=== PATIENT | male | born 1980 | race African-American/Black ===

== ENCOUNTER 2020-04-06 03:37 | Emergency (ER) | payer SELFPAY ==
[~2020-04-06] VITALS: Ht 203.2 cm; Wt 90.7 kg
[2020-04-06] MEDS ORDERED: SODIUM CHLORIDE FLUSH 10 ML SYR INJ PRN (03:45)
--- OUTSIDE RECORDS SUMMARY | 2020-04-06 04:25 | XMS REPORT | Continuity of Care Document ---
Author Author [facility] Organization [facility] Address [address] [place] [address] Dr. Aggar[address] [place] [address] Phone Unavailable Care Team Providers Care Sawyer Helper Name Role Phone Kristina [facility] Attphys Doctor Unassigned, Name No Attphys Unavailable Problems This patient has no known problems. Allergies, Adverse Reactions, Alerts This patient has no known allergies or adverse reactions. Medications This patient has no known medications. Procedures This patient has no known procedures. Encounters Start Date/Time End Date/Time Encounter Type Admission Type [facility] Care Department Encounter ID Source 2019-09-10 16:15:30 2019-09-10 16:30:30 Urgent Care Otto wilson [facility] [id number] 2019-09-10 00:00:00 2019-09-10 00:00:00 Orders Only D octor Unassigned, [place] [facility] [id number] Results This patient has no known results.
--- NOTE | 2020-04-06 04:31 | Diagnostic Imaging Report ---
EXAMINATION: CXR 2 VIEW - HOPD INDICATION: ^[id number] ^0410 COMPARISON: None FINDINGS: PA and lateral views TUBES and LINES: None. LUNGS: Lungs are well inflated. There is no evidence of pneumonia or pulmonary edema. PLEURA: No pleural effusion or pneumothorax. HEART AND MEDIASTINUM: The cardiomediastinal silhouette is unremarkable. BONES AND SOFT TISSUES: No acute osseous lesion. Soft tissues are unremarkable. UPPER ABDOMEN: No free air under the diaphragm. IMPRESSION: No acute thoracic abnormality. Signed by: Dr. Alexander Deleon MD on 04/06/2020 4:28 AM
[2020-04-06] MEDS ORDERED: KLOR-CON M2020 MEQ PO (04:35)
[2020-04-06] MEDS ORDERED: METFORMIN HCL500 MG PO (04:35)
[2020-04-06] MEDS ORDERED: BACTRIM DS TAB1 EACH PO (04:35)
[2020-04-06] MEDS ORDERED: MOTRIN800 MG PO (04:35)
--- NOTE | 2020-04-06 04:37 | Emergency Department Note ---
History of Present Illnes History of Present Illness Chief Complaint: left Chest Pain History of Present Illness This is a 39 year old male. was doing well until 8 months ago then rgt neck painful lymphnode pain, bodyaches, back/left shoulder pain, intermittent abdominal pain, then pcp had an ekg, labb work and cxr were all negative. 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 Onset (how long ago): day(s) (4) Location: cp Quality: sharp Radiation: Reports non-radiation Severity: moderate Onset quality: gradual Duration (how long): day(s) (4) Timing of current episode: intermittent Progression: waxing and waning Chronicity: recurrent Context: Denies recent illness, Denies recent surgery, Denies recent immobilization, Denies recent travel, Denies trauma/injury, Denies new medications, Denies hx of DVT/PE, Denies non-compliance w/ medications Relieving factors: none Exacerbating factors: movement Associated symptoms: Reports denies other symptoms Treatments prior to arrival: none Past Medical/Family History Physician Review I have reviewed the patient's past medical and family history. Any updates have been documented here. Past Medical History Recent Fever: No Clinical Suspicion of Infectio: No New/Unexplained Change in Ment: No Past Medical History: None Past Surgical History: None Social History Smoking Cessation: Current some day smoker Counseling Performed: No Alcohol Use: Social Any Illegal Drug Use: Yes (CANNIBIS) TB Exposure/Symptoms: No Physically hurt or threatened: No Family History Family history of heart diseas: No Other Any Pre-Existing Lines (PICC,: No Is patient up to date on immun: No Review of Systems Review of Systems Constitutional: Reports no symptoms EENTM: Reports no symptoms Cardiovascular: Reports as per HPI Respiratory: Reports no symptoms Gastrointestinal: Reports no symptoms Genitourinary: Reports no symptoms Musculoskeletal: Reports as per HPI Integumentary: Reports no symptoms Neurological: Reports no symptoms Psychological: Reports no symptoms Endocrine: Reports no symptoms Hematological/Lymphatic: Reports no symptoms Review of other systems: All other systems negative Physical Exam Related Data Allergies: Coded Allergies: No Known Allergies (Unverified , 04/06/20) Triage Vital Signs Vital Signs Date Time Temp Pulse Resp B/P (MAP) Pulse Ox O2 Delivery O2 Flow Rate FiO2 04/06/20 03:40 98.4 77 18 113/77 99 Room Air Vital signs reviewed: Yes Physical Exam CONSTITUTIONAL Constitutional: Present well-developed, Present well-nourished HENT HENT: Present normocephalic, Present atraumatic, Present oropharynx clear/moist, Present nose normal HENT L/R: Present left ext ear normal, Present right ext ear normal EYES Eyes: Reports PERRL, Reports conjunctivae normal NECK Neck: Present ROM normal, Present supple, Present cervical adenopathy (rgt anterior) PULMONARY Pulmonary: Present effort normal, Present breath sounds normal CARDIOVASCULAR Cardiovascular: Present regular rhythm, Present heart sounds normal, Present capillary refill normal, Present normal rate GASTROINTESTINAL Abdominal: Present soft, Present nontender, Present bowel sounds normal GENITOURINARY Genitourinary: Present exam deferred SKIN Skin: Present warm, Present dry MUSCULOSKELETAL Musculoskeletal: Present ROM normal NEUROLOGICAL Neurological: Present alert, Present oriented x 3, Present no gross motor or sensory deficits PSYCHOLOGICAL Psychological: Present mood/affect normal, Present judgement normal Results Laboratory Lab results reviewed: Yes Laboratory comments cbc normal, bmp normal, lft normal, cardiac enzymes normal, bnp normal Imaging Imaging results reviewed: Yes Impressions [place] [address] Patient Name: JUSTO KUMAR MR #: [id number] : 1980 Age/Sex: 39/M Req #: [id number] Adm Physician: Ordered by: THERESA BEAR Report #: [id number] Location: [facility] Room/Bed: Procedure: [id number] HOPD/CXR 2 VIEW - HOPD Exam Date: 04/06/20 Exam Time: 0410 REPORT STATUS: Signed EXAMINATION: CXR 2 VIEW - HOPD INDICATION: ^[id number] ^0410 COMPARISON: None FINDINGS: PA and lateral views TUBES and LINES: None. LUNGS: Lungs are well inflated. There is no evidence of pneumonia or pulmonary edema. PLEURA: No pleural effusion or pneumothorax. HEART AND MEDIASTINUM: The cardiomediastinal silhouette is unremarkable. BONES AND SOFT TISSUES: No acute osseous lesion. Soft tissues are unremarkable. UPPER ABDOMEN: No free air under the diaphragm. IMPRESSION: No acute thoracic abnormality. Signed by: Dr. Alexander Deleon MD on 04/06/2020 4:28 AM Dictated By: ALEXANDER DELEON MD 7 Transcribed By: ASHLEY on 04/06/20427 COPY TO: THERESA BEAR~ Procedures 12 Lead ECG Interpretation ECG Interpretation : ECG: ECG 1 Date: Apr 06, 2020 Time: 05:10 Rhythm: sinus bradycardia Rate: bradycardia BPM: 51 QRS axis: normal Conduction: incomplete RBBB ST segments normal: Yes T waves normal: Yes Clinical Impression: abnormal ECG Assessment & Plan Medical Decision Making MDM see above Assessment & Plan Final Impression: (1) Atypical chest pain (2) Polyarthralgia (3) Polymyalgia (4) Cervical lymphadenitis Depart Disposition: HOME, SELF-CARE Last Vital Signs Date Time Temp Pulse Resp B/P (MAP) Pulse Ox O2 Delivery O2 Flow Rate FiO2 04/06/20 03:40 98.4 77 18 113/77 99 Room Air Home Meds Active Scripts Doxycycline Hyclate (DOXYCYCLINE HYCLATE) 100 Mg Capsule, 100 MG PO Q12H, #20 CAP Prov:THERESA BEAR 04/06/20 Amoxicillin/Potassium Clav (AUGMENTIN 875-125 TABLET) 1 Each Tablet, 875 MG PO Q12H, #20 TAB Prov:THERESA BEAR 04/06/20 Prednisone (PREDNISONE) 20 Mg Tab, 80 MG PO DAILY, #20 TAB take 4 20 mg pills all at once Prov:THERESA BEAR 04/06/20 Medications in the ED Sodium Chloride 10 ml PRN PRN INJ IV SITE FLUSH; Start 04/06/20 at 03:45; Stop 05/06/20 at 03:44 THERESA BEAR Apr 06, 2020 04:37
[2020-04-06] MEDS ORDERED: DOXYCYCLINE HY100 MG PO (05:10)
[2020-04-06] MEDS ORDERED: PREDNISONE20 MG PO (05:10)
[2020-04-06] MEDS ORDERED: AUGMENTIN 875-1 EACH PO (05:10)
== END 2020-04-06 05:55 | disposition home or self-care (01) ==
LOC: FSED 04:15
DX: R07.89 Other chest pain (principal); I88.9 Nonspecific lymphadenitis, unspecified; M35.3 Polymyalgia rheumatica; R94.31 Abnormal electrocardiogram [ECG] [EKG]; F17.210 Nicotine dependence, cigarettes, uncomplicated
CPT/HCPCS: 71046; 80053; 80076; 82553; 83880; 84484; 85025; 93005; 99283

== ENCOUNTER 2020-04-26 15:03 | Emergency (ER) | payer SELFPAY ==
[~2020-04-26] VITALS: Ht 203.2 cm; Wt 90.7 kg
[~2020-04-26 15:03] MED LIST: AUGMENTIN 875-1 EACH PO; BACTRIM DS TAB1 EACH PO; DOXYCYCLINE HY100 MG PO; KLOR-CON M2020 MEQ PO; METFORMIN HCL500 MG PO; MOTRIN800 MG PO; PREDNISONE20 MG PO
--- NOTE | 2020-04-26 16:26 | Diagnostic Imaging Report ---
EXAM: CT Chest WITHOUT intravenous contrast 04/26/2020 3:42 PM INDICATION: ^sob COMPARISON: X-ray dated 04/06/2020 TECHNIQUE: Chest was scanned utilizing a multidetector helical scanner from the lung apex through the level of the adrenal glands without administration of IV contrast. Coronal and sagittal reformations were obtained. Routine protocol was performed. IV CONTRAST: None RADIATION DOSE: Total DLP: 721 mGy*cm. Dose modulation, iterative reconstruction, and/or weight based adjustment of the mA/kV was utilized to reduce the radiation dose to as low as reasonably achievable. COMPLICATIONS: None FINDINGS: LINES/ TUBES: None. LUNGS AND AIRWAYS: Large airways are patent. Lungs are clear without focal consolidation. No suspicious pulmonary nodule or mass is identified. PLEURA: The pleural spaces are clear. HEART AND MEDIASTINUM: The thyroid gland is normal. No mediastinal, hilar or axillary lymphadenopathy. The heart is normal in size.. There is no pericardial effusion. Air is identified within the mid and distal esophagus, nonspecific. UPPER ABDOMEN: Unremarkable BONES: Negative for acute osseous abnormality. No suspicious lytic or blastic lesion is identified. SOFT TISSUES: Unremarkable. IMPRESSION: Unremarkable CT of the chest without contrast. No suspicious opacity or pulmonary nodule. Question mild reflux with air in the mid and distal esophagus. Signed by: Stanley Johnson MD on 04/26/2020 4:23 PM
--- NOTE | 2020-04-26 16:39 | Diagnostic Imaging Report ---
EXAMINATION: CT of the neck without contrast HISTORY: Right lump/lymph node in the neck COMPARISON: None TECHNIQUE: Multidetector helical axial images were obtained from the sternal notch through the skull base without contrast. Dose modulation, iterative reconstruction, and/or weight based adjustment of the mA/kV was utilized to reduce the radiation dose to as low as reasonably achievable. FINDINGS: Mass: -No solid or cystic masses seen. Approximately 2.3 x 1.6 cm calcification in the right submandibular region near the hilum of the right submandibular gland. No discrete associated inflammatory changes or fluid collections around the calculus. No definite dilatation of the submandibular gland duct at this time. -Possible tiny thyroglossal duct cyst at the level of the hyoid. Nodes: No discrete enlarge lymphadenopathy in this unenhanced study. Sinuses: Imaged portions unremarkable. Oral cavity: No abnormalities in this unenhanced study. Salivary glands: Parotid and submandibular glands are otherwise unremarkable. Pharynx: No abnormalities in this unenhanced study Larynx: No abnormalities in this unenhanced study Thyroid gland: Hypoattenuating gland may represent the sequela from prior thyroiditis. Upper esophagus: Unremarkable. Blood vessels: Cannot be evaluated due to lack of IV contrast. Bones: Unremarkable. IMPRESSION: Right submandibular gland sialolith, the large calculus is not associated to inflammatory changes or fluid collections at this time. Signed by: Dr. Mirella Jimenez M.D. on 04/26/2020 4:36 PM
--- NOTE | 2020-04-26 16:50 | Emergency Department Note ---
History of Present Illnes History of Present Illness Chief Complaint: General Medicine Complaints History of Present Illness This is a 39 year old male Chief Complaint Comment RT SIDE OF NECK WITH LUMP THAT PT STATES IS A SWOLLEN LYMPH NODE SINCE JUNE. PT SUPER PLEASANT AND COOPERATIVE. NO FEVERS SMOKES MARIJUANA. PT DENIES ANY MEDICAL HX. TAKES NO RX. PT STATES ACHES AND PAIN THROUGHTOUT BODY. PT AAOX4. AMBULATORY. . Historian: Patient, Family Member Arrival Mode: Car Onset (how long ago): month(s) (1) Location: neck Quality: pain Radiation: Reports neck Severity: moderate Onset quality: gradual Duration (how long): month(s) (1) Timing of current episode: constant Progression: unchanged Chronicity: new Context: Denies recent illness, Denies recent surgery, Denies recent immobilization, Denies recent travel, Denies trauma/injury, Denies new medications, Denies hx of DVT/PE, Denies non-compliance w/ medications, Denies other Relieving factors: none Exacerbating factors: none Associated symptoms: Denies denies other symptoms, Denies confusion, Denies chest pain, Denies cough, Denies diaphoresis, Denies fever/chills, Denies headaches, Denies loss of appetite, Denies malaise, Denies nausea/vomiting, Denies rash, Denies seizure, Denies shortness of breath, Denies syncope, Denies weakness, Denies other Past Medical/Family History Physician Review I have reviewed the patient's past medical and family history. Any updates have been documented here. Past Medical History Recent Fever: No Clinical Suspicion of Infectio: No New/Unexplained Change in Ment: No Past Medical History: None Past Surgical History: None Social History Smoking Cessation: Never Smoker Alcohol Use: Occasional Review of Systems Review of Systems Constitutional: Reports no symptoms EENTM: Reports as per HPI Cardiovascular: Reports no symptoms Respiratory: Reports no symptoms Gastrointestinal: Reports no symptoms Genitourinary: Reports no symptoms Musculoskeletal: Reports no symptoms Integumentary: Reports no symptoms Neurological: Reports no symptoms Psychological: Reports no symptoms Endocrine: Reports no symptoms Hematological/Lymphatic: Reports no symptoms Physical Exam Related Data Allergies: Coded Allergies: No Known Allergies (Unverified , 04/06/20) Triage Vital Signs Vital Signs Date Time Temp Pulse Resp B/P (MAP) Pulse Ox O2 Delivery O2 Flow Rate FiO2 04/26/20 15:12 98.2 85 16 128/80 100 Room Air Vital signs reviewed: Yes Physical Exam CONSTITUTIONAL Constitutional: Present well-developed, Present well-nourished HENT HENT: Present normocephalic, Present atraumatic, Present oropharynx clear/moist, Present nose normal, Present other (swelling right submandibular) HENT L/R: Present left ext ear normal, Present right ext ear normal EYES Eyes: Reports PERRL, Reports conjunctivae normal NECK Neck: Present ROM normal PULMONARY Pulmonary: Present effort normal, Present breath sounds normal CARDIOVASCULAR Cardiovascular: Present regular rhythm, Present heart sounds normal, Present capillary refill normal, Present normal rate GASTROINTESTINAL Abdominal: Present soft, Present nontender, Present bowel sounds normal GENITOURINARY Genitourinary: Present exam deferred SKIN Skin: Present warm, Present dry MUSCULOSKELETAL Musculoskeletal: Present ROM normal NEUROLOGICAL Neurological: Present alert, Present oriented x 3, Present no gross motor or sensory deficits PSYCHOLOGICAL Psychological: Present mood/affect normal, Present judgement normal Results Imaging Imaging results reviewed: Yes Assessment & Plan Medical Decision Making MDM lymphadenitis Reassessment Reassessment time: 16:49 Reassessment better Assessment & Plan Final Impression: (1) Neck pain (2) Salivary gland calculi Depart Disposition: HOME, SELF-CARE Last Vital Signs Date Time Temp Pulse Resp B/P (MAP) Pulse Ox O2 Delivery O2 Flow Rate FiO2 04/26/20 15:12 98.2 85 16 128/80 100 Room Air Home Meds Active Scripts Doxycycline Hyclate (DOXYCYCLINE HYCLATE) 100 Mg Capsule, 100 MG PO Q12H, #20 CAP Prov:THERESA BEAR 04/06/20 Amoxicillin/Potassium Clav (AUGMENTIN 875-125 TABLET) 1 Each Tablet, 875 MG PO Q12H, #20 TAB Prov:THERESA BEAR 04/06/20 Prednisone (PREDNISONE) 20 Mg Tab, 80 MG PO DAILY, #20 TAB take 4 20 mg pills all at once Prov:THERESA BEAR 04/06/20 BRIAN FRANKS MD Apr 26, 2020 16:50
== END 2020-04-26 16:30 | disposition home or self-care (01) ==
LOC: FSED 15:26
DX: R59.9 Enlarged lymph nodes, unspecified (principal); K11.5 Sialolithiasis; M54.2 Cervicalgia
CPT/HCPCS: 70486; 71250; 99284